=== PATIENT | male | born 1965 | race Caucasian/White ===

== ENCOUNTER 2025-09-14 00:58 | Day surgery (SDC) | payer BC, SELFPAY ==
[2025-09-07 09:31] VITALS: BMI 26.4
--- OUTSIDE RECORDS SUMMARY | 2025-09-14 01:01 | XMS_ITS | Clinical Summary ---
Author Organization [facility] Address [address] [place] [address] Care Team Providers Care Bed Manager Name Role Phone Jose Antonio Pope MD Primary Care Provider Source Comments [facility],non-owned Affiliates and Associated Physician Practices is amultiple site organization consisting of ambulatory clinics and hospital sitesin [place], [place], [place] and [place]. This disclosure is being madepursuant to the Care Everywhere program and may not contain all information available regarding this patient. Last updated 18.[facility] Allergies Active Allergy Reactions Criticality Noted Date Comments Hydrochlorothiazide Dizziness 03/31/2024 Medications * Be aware that medications may not be up to date on this document. Alwaysverify current medications with the patient. 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 Gender Identity Not on file Sexual Orientation Not on file Last Filed Vital Signs Vital Sign Reading Time Taken Comments Blood Pressure 132/77 04/17/2024 3:16 PM CDT Pulse 61 04/17/2024 3:16 PM CDT Temperature 35.8 C (96.5 F) 04/17/2024 11:46 AM CDT Respiratory Rate 18 04/17/2024 3:16 PM CDT Oxygen Saturation 94% 04/17/2024 3:16 PM CDT Inhaled Oxygen Concentration - - Weight 88.1 kg (194 lb 3.2 oz) 04/17/2024 11:46 AM CDT Height 182.9 cm (6') 04/17/2024 11:46 AM CDT Body Mass Index 26.34 04/17/2024 11:46 AM CDT Plan of Treatment Health Maintenance Due Date Last Done Comments COLOGUARD (AGES 45-75) - COLON CA SCREENING 1967 CT COLONOGRAPHY - COLON CA SCREENING 1965 FIT - COLON CA SCREENING 1965 FLEX SIG - COLON CA SCREENING 1967 LIPID TESTING 1967 HIV SCREENING 1982 HEPATITIS C SCREENING 12/16/1985 DTAP/TDAP/TD VACCINES (1 - Tdap) 1986 HEPATITIS B VACCINE (1 of 3 - 19+ 3-dose series) 1986 PNEUMOCOCCAL VACCINE 50+ (1 of 1 - PCV) 2017 ZOSTER VACCINE (1 of 2) 2017 SCREENING FOR DIABETES 05/01/2024 DEPRESSION SCREENING 11/19/2024 COLON MONITORING 05/01/2025 05/01/2024, , 05/01/2024, Additional history exists Colorectal Cancer Screening 05/01/2025 COVID-19 VACCINE ( - season) 2025 INFLUENZA VACCINE (#1) 2025 COLONOSCOPY - COLON CA SCREENING 05/01/2034 05/01/2024, 05/01/2024, 05/01/2024, Additional history exists HIB VACCINE Aged Out No longer eligi ble based on patient's age to complete this topic HPV VACCINE Aged Out No longer eligi ble based on patient's age to complete this topic MENINGOCOCCAL (Group B) VACCINE SHARED DECISION-MAKING Aged Out No longer eligible based on patient's age to complete this topic MENINGOCOCCAL GROUPS A/C/Y/W VACCINE Aged Out No longer eligible based on patient's age to complete this topic Procedures Procedure Name Priority Date/Time Associated Diagnosis Comments ENDOSCOPY, COLON, SCREENING Routine 04/17/2024 10:47 AM CDT Special screening for malignant neoplasms, colon Personal history of colonic polyps from Last 3 Months or Most Recently Relevant to Health Maintenance Results * ENDOSCOPY, COLON, SCREENING (04/17/2024 10:47 AM CDT) Report Endoscopy POC _ Patient Name: Doug Chavez Procedure Date: 04/17/2024 10:47 AM Date of : 1965 Admit Type: Outpatient Age: 58 Gender: Male Attending MD: Art Huerta MD, [id number] _ Procedure: Colonoscopy Indications: Therapeutic procedure for colon polyps, Therapeutic procedure for known colon adenoma Providers: Art Huerta MD (Doctor) Referring MD: Jose Antonio Pope MD (Referring MD) Medicines: Monitored Anesthesia Care Complications: No immediate complications. _ Estimated Blood Loss: Estimated blood loss: none. Procedure: Pre-Anesthesia Assessment: - Prior to the procedure, a History and Physical was performed, and patient medications and allergies were reviewed. The patient's tolerance of previous anesthesia was also reviewed. The risks and benefits of the procedure and the sedation options and risks were discussed with the patient. All questions were answered, and informed consent was obtained. Prior Anticoagulants: The patient has taken no anticoagulant or antiplatelet agents. ASA Grade Assessment: II - A patient with mild systemic disease. After reviewing the risks and benefits, the patient was deemed in satisfactory condition to undergo the procedure. After I obtained informed consent, the scope was passed under direct vision. Throughout the procedure, the patient's blood pressure, pulse, and oxygen saturations were monitored continuously. The Colonoscope was introduced through the anus and advanced to the cecum, identified by appendiceal orifice and ileocecal valve. The colonoscopy was performed without difficulty. The patient tolerated the procedure well. The quality of the bowel preparation was adequate. The ileocecal valve, appendiceal orifice, and rectum were photographed. Findings: The perianal and digital rectal examinations were normal. A 12 mm polyp was found in the cecum. The polyp was sessile. The polyp was removed with a hot snare. Resection and retrieval were complete. Verification of patient identification for the specimen was done. Estimated blood loss: none. To prevent bleeding after the polypectomy, two hemostatic clips were successfully placed. A 4 mm polyp was found in the cecum. The polyp was sessile. The polyp was removed with a cold snare. Resection and retrieval were complete. Verification of patient identification for the specimen was done. Estimated blood loss: none. A 25 mm polyp was found in the ascending colon. The polyp was flat. Preparations were made for mucosal resection. Chromoscopy with methylene blue was done to kumar the borders of the lesion. Demarcation of the lesion was performed to clearly identify boundaries of the lesion. A 0.4 mg/mL solution of epinephrine with methylene blue was injected to raise the lesion. Snare mucosal resection was performed. Resection and retrieval were complete. Resected tissue margins were examined and clear of polyp tissue. To prevent bleeding after mucosal resection, three hemostatic clips were successfully placed. Clip skin piler: [employer]. A 15 mm polyp was found in the ascending colon. The polyp was sessile. Preparations were made for mucosal resection. Chromoscopy with methylene blue was done to kumar the borders of the lesion. Demarcation of the lesion was performed to clearly identify boundaries of the lesion. A 0.4 mg/mL solution of epinephrine with methylene blue was injected to raise the lesion. Snare mucosal resection was performed. Resection and retrieval were complete. Resected tissue margins were examined and clear of polyp tissue. To prevent bleeding after the polypectomy, two hemostatic clips were successfully placed. A 22 mm polyp was found in the descending colon. The polyp was flat. Preparations were made for mucosal resection. Chromoscopy with methylene blue was done to kumar the borders of the lesion. Demarcation of the lesion was performed to clearly identify boundaries of the lesion. A 0.4 mg/mL solution of epinephrine with methylene blue was injected to raise the lesion. Snare mucosal resection was performed. Resection and retrieval were complete. Resected tissue margins were examined and clear of polyp tissue. To prevent bleeding after mucosal resection, two hemostatic clips were successfully placed. An 8 mm polyp was found in the descending colon. The polyp was sessile. The polyp was removed with a hot snare. Resection and retrieval were complete. Verification of patient identification for the specimen was done. Estimated blood loss: none. To prevent bleeding after the polypectomy, one hemostatic clip was successfully placed. A diminutive polyp was found in the sigmoid colon. The polyp was sessile. The polyp was removed with a jumbo cold forceps. Resection and retrieval were complete. Verification of patient identification for the specimen was done. Estimated blood loss was minimal. An 18 mm polyp was found in the proximal rectum. The polyp was semi-pedunculated . The polyp was removed with a hot snare. Resection and retrieval were complete. Verification of patient identification for the specimen was done. Estimated blood loss: none. Non-bleeding external hemorrhoids were found during retroflexion. The hemorrhoids were medium-sized. The exam was otherwise without abnormality. Small polyps could have been missed due to the quality of the prep. _ Impression: - One 12 mm polyp in the cecum, removed with a hot snare. Resected and retrieved. Clips were placed. - One 4 mm polyp in the cecum, removed with a cold snare. Resected and retrieved. - One 25 mm polyp in the ascending colon adjacent to the tattoo, removed en bloc with mucosal resection. Resected and retrieved. Clips were placed. - One 15 mm polyp in the ascending colon, removed en bloc with mucosal resection. Resected and retrieved. Clips were placed. - One 22 mm polyp in the descending colon, removed en bloc with mucosal resection. Resected and retrieved. Clips were placed. - One 8 mm polyp in the descending colon, removed with a hot snare. Resected and retrieved. Clip was placed. - One diminutive polyp in the sigmoid colon, removed with a jumbo cold forceps. Resected and retrieved. - One 18 mm polyp in the proximal rectum, removed with a hot snare. Resected and retrieved. - Non-bleeding external hemorrhoids. - The examination was otherwise normal. Small polyps could have been missed due to quality of the prep. Recommendation: - Discharge patient to home (with spouse). - Patient has a contact number available for emergencies. The signs and symptoms of potential delayed complications were discussed with the patient. Return to normal activities tomorrow. Written discharge instructions were provided to the patient. - Resume previous diet today. - Continue present medications. - Await pathology results. - Repeat colonoscopy in 1 year for surveillance. Procedure Code(s): --- Professional --- 15545, Colonoscopy, flexible; with endoscopic mucosal resection 46371, 59, Colonoscopy, flexible; with removal of tumor(s), polyp(s), or other lesion(s) by snare technique 92332, 59, Colonoscopy, flexible; with biopsy, single or multiple --- Technical --- 74962, Colonoscopy, flexible; with endoscopic mucosal resection 92817, 59, Colonoscopy, flexible; with removal of tumor(s), polyp(s), or other lesion(s) by snare technique [id number], 59, Colonoscopy, flexible; with biopsy, single or multiple Diagnosis Code(s): --- Professional --- D12.0, Benign neoplasm of cecum D12.2, Benign neoplasm of ascending colon D12.4, Benign neoplasm of descending colon D12.5, Benign neoplasm of sigmoid colon D12.8, Benign neoplasm of rectum K64.4, Residual hemorrhoidal skin tags K63.5, Polyp of colon D12.6, Benign neoplasm of colon, unspecified --- Technical --- D12.0, Benign neoplasm of cecum D12.2, Benign neoplasm of ascending colon D12.4, Benign neoplasm of descending colon D12.5, Benign neoplasm of sigmoid colon D12.8, Benign neoplasm of rectum K64.4, Residual hemorrhoidal skin tags K63.5, Polyp of colon D12.6, Benign neoplasm of colon, unspecified CPT copyright 2020 [employer]. All rights reserved. The codes documented in this report are preliminary and upon gravity prospecting observer helper review may be revised to meet current compliance requirements. Dr. Kasey Huerta MD M Zonia Huerta MD 04/17/2024 3:07:14 PM This report has been signed electronically. Number of Addenda: 0 Note Initiated On: 04/17/2024 10:47 AM Procedure Date: 04/17/2024 10:47:05 AM Scope Withdrawal Time: 0 hours 56 minutes 1 second [facility] 04/17/2024 10:4 7 AM CDT Art Huerta MD GI PROCEDURE ORDERABLES Edited Result - Final [facility] from Last 3 Months or Most Recently Relevant to Health Maintenance Insurance [employer] Care Teams Bed Manager Relationship Specialty [place] [address] [place] [id number] PCP - General Internal Medicine 10/24/23
--- OUTSIDE RECORDS SUMMARY | 2025-09-14 01:01 | XMS_ITS | Data Portability ---
Author Organization [place] - [facility], Main Office Address [address] [place] [address] Assessment Encounter Date Assessment Date Assessment LastModified by Organization Details LastModified Time 07/26/2023 07/26/2023 right colon polyp. Benign serrated adenoma for pathologic report. No dysplasia. Incompletely excised however. I had conversation with GI doctor knee as he performed a colonoscopy and we will repeat colonoscopy in 5 4 months or so to revisit. If unable to completely excise then he may at that point required right colectomy. I discussed these findings with the patient. He is agreeable. [email or web address] Not available 07/26/2023 13:23:01 Plan of Treatment Reminders Order Date Submit Date Provider Last Modified By Organization Details Last Modified Time Details Appointments Follow Up 15 2024 02:15P Art ayala MD Not available Not available Not available Lab PSA, total, serum or plasma 2023 024 BLANE [facility] (Lab), [address] [place], [address], 05/06/2024 16:42:00 lipid panel, serum 2023 024 [email or web address] [facility] (Lab), [address] [place], [address], 08/25/2024 10:21:37 CBC w/ auto diff 2023 024 [email or web address] [facility] (Lab), [address] [place], [address], 08/25/2024 10:21:38 TSH, serum or plasma 2023 024 [email or web address] [facility] (Lab), [address] [place], [address], 08/25/2024 10:21:38 CMP, serum or plasma 2023 024 [email or web address] [facility] (Lab), [address] [place], [address], 08/25/2024 10:21:38 Referral None recorded . Procedures None recorded . Surgeries None recorded . Imaging None recorded . Medication Orders None recorded . Patient TargetsNo targets recorded. Patient Instructions Encounter Date Encounter Id Patient Instructions Last Modified By Organization Details Last Modified Time 02/20/2024 [id number] risk assessment* [email or web address] Not avai lable 02/20/2024 10:40:32 INFLUENZA VACCIN E Recommended today, but patient declined TD/TDAP Patient will get at local pharmacy/health department PNEUMONIA VACCINE Recommended at age 67 SHINGLES Patient will get at local pharmacy/health department PSA recommended COLORECTAL SCREENING has appt for 2nd opinion 03/2024 DEPRESSION SCREENING Negative BMI Overweight try to lose 10% of your body weight NUTRITION Eat Heart Healthy Diet PHYSICAL ACTIVITY Need more exercise/physical activity ALCOHOL USE Occasional/Social Use TOBACCO USE non smoker LUNG CANCER SCREENING Non Smoker-not indicated SEXUALLY ACTIVE HEPATITIS C SCREENING Not indicated GLUCOSE SCREENING recommended LIPID SCREENING recommended [email or web address] Not available 02/20/2024 10:25:35 Reason for Referral None Reported. Results Created Date Observation Date Name Description Value Unit Range Abnormal Flag Note LastModifiedBy Organization Detail LastModifiedTime 06/07/2006/07/2021 PSA SCREE N PSA medicare screen 1.47 NG/mL 0.00-4 .00 Not Available [facility] (Lab) [address] [place], [address], 06/07/2021 17:34:25 06/07/20 21 06/07/2021 TSH thyroid-stim ulating hormone 2.540 uIU/m L 0.465- 4.680 Not Available [facility] (Lab) [address] [place], [address], 06/07/2021 17:34:23 06/07/20 21 06/07/2021 T4 FREE free T4 1.16 NG/dL 0.78-2 .19 Not Available [facility] (Lab) [address] [place], [address], 06/07/2021 17:06:58 06/07/20 21 06/07/2021 COMPR EHENS JOSÉ METAB OLIC PANEL sodium 137 mmol/ L 137-14 5 Not Available [facility] (Lab) [address] [place], [address], 06/07/2021 17:00:24 06/07/20 21 06/07/2021 COMPR EHENS JOSÉ METAB OLIC PANEL potassium 4.9 mmol/ L 3.5-5. 1 Not Available [facility] (Lab) [address] [place], [address], 06/07/2021 17:00:24 06/07/20 21 06/07/2021 COMPR EHENS JOSÉ METAB OLIC PANEL chloride 103 mmol/ L 98-107 Not Available [facility] (Lab) [address] [place], [address], 06/07/2021 17:00:24 06/07/20 21 06/07/2021 COMPR EHENS JOSÉ METAB OLIC PANEL carbon dioxide 28 mmol/ L 22-30 Not Available [facility] (Lab) [address] [place], [address], 06/07/2021 17:00:24 06/07/20 21 06/07/2021 COMPR EHENS JOSÉ METAB OLIC PANEL agap 10.9 mmol/ L 14-22 low Not Available [facility] (Lab) [address] [place], [address], 06/07/2021 17:00:24 06/07/20 06/07/2021 COMPR EHENS JOSÉ METAB OLIC PANEL glucose 88 mg/dL 70-99 Not Available [facility] (Lab) [address] [place], [address], 06/07/2021 17:00:24 06/07/20 21 06/07/2021 COMPR EHENS JOSÉ METAB OLIC PANEL BUN 16 mg/dL 8-19 Not Available [facility] (Lab) [address] [place], [address], 06/07/2021 17:00:24 06/07/20 21 06/07/2021 COMPR EHENS JOSÉ METAB OLIC PANEL creatinine 1.17 mg/dL 0.66-1 .25 Not Available [facility] (Lab) [address] [place], [address], 06/07/2021 17:00:24 06/07/20 21 06/07/2021 COMPR EHENS JOSÉ METAB OLIC PANEL GFR >60 Refer ence Range : [place] ge GFR Healt hy Adult : >60 mL/mi n/1.7 3 m2 Chron ic Kidne y Disea se: 15-60 mL/mi n/1.7 3 m2 Kidne y Failu re: <15/m L/min /1.73 m2 www.n iddk. nih.g ov MDRD study equat ion hasn' t been valid ated in child edwar <18 yrs of age, pregn ant women , the elder ly >85 yrs of age, or in some racia l or ethni c subgr oups, suc as Hispa nics. Outsi de the valid ated vinnie eters , estim ated GFR is less accur ate requi ring clini cristina judgm ent on a case by case basis . Clini cristina inter preta tion for other races and ages must be made by the clini mo . Futhe rmore , any of th e limit ation s with the use of serum creat inine relat ed to nutri татьяна l statu s o r medic ation usage hasn' t accou nted for the MDRD Study equat ion. For perso ns < 18 yrs of age, a pedia tric GFR calcu lator can be locat ed on the [facility] websi te: https ://kristin costello.o juma/marshal sigala s/kdo qi/gf r_cal culat or Not Available [facility] (Lab) [address] [place], [address], 06/07/2021 17:00:24 06/07/20 21 06/07/2021 COMPR EHENS JOSÉ METAB OLIC PANEL alkaline phosphatase 63 U/L 38-126 Not Available [facility] (Lab) [address] [place], [address], 06/07/2021 17:00:24 06/07/20 21 06/07/2021 COMPR EHENS JOSÉ METAB OLIC PANEL alanine aminotransfe rase 17 U/L 0-50 Not Available [facility] (Lab) [address] [place], [address], 06/07/2021 17:00:24 06/07/20 21 06/07/2021 COMPR EHENS JOSÉ METAB OLIC PANEL aspartate aminotransfe rase 30 U/L 15-46 Not Available [facility] (Lab) [address] [place], [address], 06/07/2021 17:00:24 06/07/20 21 06/07/2021 COMPR EHENS JOSÉ METAB OLIC PANEL bilirubin, total 0.90 mg/dL 0.20-1 .30 Not Available [facility] (Lab) [address] [place], [address], 06/07/2021 17:00:24 06/07/20 21 06/07/2021 COMPR EHENS JOSÉ METAB OLIC PANEL calcium 9.1 mg/dL 8.4-10 .2 Not Available [facility] (Lab) [address] [place], [address], 06/07/2021 17:00:24 06/07/20 21 06/07/2021 COMPR EHENS JOSÉ METAB OLIC PANEL total protein 6.9 g/dL 6.3-8. 2 Not Available [facility] (Lab) [address] [place], [address], 06/07/2021 17:00:24 06/07/20 21 06/07/2021 COMPR EHENS JOSÉ METAB OLIC PANEL albumin 4.5 g/dL 3.4-5. 0 Not Available [facility] (Lab) [address] [place], [address], 06/07/2021 17:00:24 06/07/20 21 06/07/2021 COMPR EHENS JOSÉ METAB OLIC PANEL globulin 2.4 g/dL 2.6-4. 2 low Not Available [facility] (Lab) [address] [place], [address], 06/07/2021 17:00:24 06/07/20 21 06/07/2021 COMPR EHENS JOSÉ METAB OLIC PANEL A/G ratio 1.9 ratio 1.0-2. 0 Not Available [facility] (Lab) [address] [place], [address], 06/07/2021 17:00:24 06/07/20 21 06/07/2021 LIPID PANEL cholesterol 181 mg/dL 140-19 9 NIH ROLANDO NSUS RECOM MENDA TION FOR PATI STERO L: ADULT CHILD LOW RISK: <200 <170 BORDE RLINE : <200- 239 ----- HIGH RISK: >240 >200 Not Available [facility] (Lab) [address] [place], [address], 06/07/2021 17:00:21 06/07/20 21 06/07/2021 LIPID PANEL triglyceride s 128 mg/dL 0-150 NIH ROLANDO NSUS REPOR T RECOM MENDA TION FOR TRIGL YCERI ABEL: ADULT CHILD LOW RISK: <150 ----- BODER LINE: 150-1 99 ----- HIGH RISK: >200 ----- Not Available [facility] (Lab) [address] [place], [address], 06/07/2021 17:00:21 06/07/20 21 06/07/2021 LIPID PANEL HDL cholesterol 47 mg/dL 40- Not Available [facility] (Lab) [address] [facility] [place], [address], 06/07/2021 17:00:21 06/07/20 21 06/07/2021 LIPID PANEL LDL cholesterol, calculated 108 mg/dL 0-130 NIH ROLANDO NSUS REPOR T RECOM MENDA TIONS FOR LDL: ADULT CHILD LOW RISK <130 <110 (OPTI MAL LDL) <100 ----- PARTH RLINE : 130-1 59 ----- HIGH RISK: >160 >130 A TRIGL YCERI DE RESUL T >400 INVAL IDATE S THE CALCU LATIO N FOR LDL FRACT IONAT ION - THE LDL RESUL T WILL NOT BE REPOR FERCHO. Not Available [facility] (Lab) [address] [place], [address], 06/07/2021 17:00:21 06/07/20 21 06/07/2021 CBC/C OMPLE TE BLD COUNT W/DIF F white blood cells 5.8 x10'3 /uL 4.2-10 .8 Not Available [facility] (Lab) [address] [place], [address], 06/07/2021 16:46:32 06/07/20 21 06/07/2021 CBC/C OMPLE TE BLD COUNT W/DIF F red blood cells 4.70 x10'6 /uL 4.10-5 .80 Not Available [facility] (Lab) [address] [place], [address], 06/07/2021 16:46:32 06/07/20 21 06/07/2021 CBC/C OMPLE TE BLD COUNT W/DIF F hemoglobin 13.9 g/dL 13.2-1 7.0 Not Available [facility] (Lab) [address] [place], [address], 06/07/2021 16:46:32 06/07/20 21 06/07/2021 CBC/C OMPLE TE BLD COUNT W/DIF F hematocrit 41.2 % 39.3-5 0.0 Not Available [facility] (Lab) [address] [facility] [place], [address], 06/07/2021 16:46:32 06/07/20 21 06/07/2021 CBC/C OMPLE TE BLD COUNT W/DIF F mean red cell volume 87.7 fL 80.0-9 7.0 Not Available [facility] (Lab) [address] [place], [address], 06/07/2021 16:46:32 06/07/20 21 06/07/2021 CBC/C OMPLE TE BLD COUNT W/DIF F mean red cell hemoglobin 29.6 pg 27.0-3 3.0 Not Available [facility] (Lab) [address] [place], [address], 06/07/2021 16:46:32 06/07/20 21 06/07/2021 CBC/C OMPLE TE BLD COUNT W/DIF F mean RBC HGB concentratio n 33.7 g/dL 31.0-3 6.0 Not Available [facility] (Lab) [address] [place], [address], 06/07/2021 16:46:32 06/07/20 21 06/07/2021 CBC/C OMPLE TE BLD COUNT W/DIF F red cell distribution width 12.8 % 11.8-1 5.5 Not Available [facility] (Lab) [address] [place], [address], 06/07/2021 16:46:32 06/07/20 21 06/07/2021 CBC/C OMPLE TE BLD COUNT W/DIF F platelets 214 x10'3 /uL 150-40 0 Not Available [facility] (Lab) [address] [place], [address], 06/07/2021 16:46:32 06/07/20 21 06/07/2021 CBC/C OMPLE TE BLD COUNT W/DIF F mean platelet volume 10.1 fL 9.0-12 .4 Not Available [facility] (Lab) [address] [place], [address], 06/07/2021 16:46:32 06/07/20 21 06/07/2021 CBC/C OMPLE TE BLD COUNT W/DIF F neutrophils 62.9 % 39.0-7 2.0 Not Available [facility] (Lab) [address] [place], [address], 06/07/2021 16:46:32 06/07/20 21 06/07/2021 CBC/C OMPLE TE BLD COUNT W/DIF F lymphocytes 23.8 % 16.0-4 7.0 Not Available [facility] (Lab) [address] [place], [address], 06/07/2021 16:46:32 06/07/20 21 06/07/2021 CBC/C OMPLE TE BLD COUNT W/DIF F monocytes 7.4 % 5.0-12 .0 Not Available [facility] (Lab) [address] [place], [address], 06/07/2021 16:46:32 06/07/20 21 06/07/2021 CBC/C OMPLE TE BLD COUNT W/DIF F eosinophils 4.5 % 1.0-7. 0 Not Available [facility] (Lab) [address] [place], [address], 06/07/2021 16:46:32 06/07/20 21 06/07/2021 CBC/C OMPLE TE BLD COUNT W/DIF F basophils 1.2 % 0.0-2. 0 Not Available [facility] (Lab) [address] [place], [address], 06/07/2021 16:46:32 06/07/20 21 06/07/2021 CBC/C OMPLE TE BLD COUNT W/DIF F immature granulocytes 0.2 % 0.00-0 .50 Not Available [facility] (Lab) [address] [place], [address], 06/07/2021 16:46:32 06/07/20 21 06/07/2021 CBC/C OMPLE TE BLD COUNT W/DIF F neutrophils, absolute count 3.68 x10'3 /uL 1.5-8. 0 Not Available [facility] (Lab) [address] [place], [address], 06/07/2021 16:46:32 06/07/20 21 06/07/2021 CBC/C OMPLE TE BLD COUNT W/DIF F lymphocytes, absolute count 1.39 x10'3 /uL 1.07-3 .43 Not Available [facility] (Lab) [address] [place], [address], 06/07/2021 16:46:32 06/07/20 21 06/07/2021 CBC/C OMPLE TE BLD COUNT W/DIF F monocytes, absolute count 0.43 x10'3 /uL 0.29-0 .99 Not Available [facility] (Lab) [address] [place], [address], 06/07/2021 16:46:32 06/07/20 21 06/07/2021 CBC/C OMPLE TE BLD COUNT W/DIF F eosinophils, absolute count 0.26 x10'3 /uL 0.02-0 .53 Not Available [facility] (Lab) [address] [place], [address], 06/07/2021 16:46:32 06/07/20 21 06/07/2021 CBC/C OMPLE TE BLD COUNT W/DIF F basophils, absolute count 0.07 x10'3 /uL 0.01-0 .08 Not Available [facility] (Lab) [address] [place], [address], 06/07/2021 16:46:32 06/07/20 21 06/07/2021 CBC/C OMPLE TE BLD COUNT W/DIF F immature granulocytes ,absolute 0.01 x10'3 /uL 0.00-0 .05 Not Available [facility] (Lab) [address] [place], [address], 06/07/2021 16:46:32 06/07/20 21 06/07/2021 CBC/C OMPLE TE BLD COUNT W/DIF F nucleated red blood cells 0.0 % -0 Not Available [facility] (Lab) [address] [place], [address], 06/07/2021 16:46:32 06/07/20 21 06/07/2021 CBC/C OMPLE TE BLD COUNT W/DIF F NRBC# 0.00 x10'3 /uL Not Available [facility] (Lab) [address] [place], [address], 06/07/2021 16:46:32 09/07/20 22 09/07/2022 TSH W/REF KEVON FT4 TSH with reflex free T4 2.570 uIU/m L 0.465- 4.680 Not Available [facility] (Lab) [address] [place], [address], 09/07/2022 14:53:17 09/07/20 22 09/07/2022 PSA SCREE N PSA medicare screen 1.94 NG/mL 0.00-4 .00 Not Available [facility] (Lab) [address] [place], [address], 09/07/2022 14:53:15 09/07/20 22 09/07/2022 LIPID PANEL cholesterol 244 mg/dL 140-19 9 high NIH ROLANDO NSUS RECOM MENDA TION FOR PATI STERO L: ADULT CHILD LOW RISK: <200 <170 BORDE RLINE : <200- 239 ----- HIGH RISK: >240 >200 Not Available [facility] (Lab) [address] [place], [address], 09/07/2022 14:39:02 09/07/20 22 09/07/2022 LIPID PANEL triglyceride s 172 mg/dL 0-150 high NIH ROLANDO NSUS REPOR T RECOM MENDA TION FOR TRIGL YCERI ABEL: ADULT CHILD LOW RISK: <150 ----- BODER LINE: 150-1 99 ----- HIGH RISK: >200 ----- Not Available [facility] (Lab) [address] [place], [address], 09/07/2022 14:39:02 09/07/20 22 09/07/2022 LIPID PANEL HDL cholesterol 62 mg/dL 40- Not Available [facility] (Lab) [address] [place], [address], 09/07/2022 14:39:02 09/07/20 22 09/07/2022 LIPID PANEL LDL cholesterol, calculated 148 mg/dL 0-130 high NIH ROLANDO NSUS REPOR T RECOM MENDA TIONS FOR LDL: ADULT CHILD LOW RISK <130 <110 (OPTI MAL LDL) <100 ----- BORDE RLINE : 130-1 59 ----- HIGH RISK: >160 >130 A TRIGL YCERI DE RESUL T >400 INVAL IDATE S THE CALCU LATIO N FOR LDL FRACT IONAT ION - THE LDL RESUL T WILL NOT BE REPOR FERCHO. Not Available [facility] (Lab) [address] [place], [address], 09/07/2022 14:39:02 09/07/20 22 09/07/2022 COMPR EHENS JOSÉ METAB OLIC PANEL sodium 138 mmol/ L 137-14 5 Not Available [facility] (Lab) [address] [place], [address], 09/07/2022 14:37:21 09/07/20 22 09/07/2022 COMPR EHENS JOSÉ METAB OLIC PANEL potassium 4.6 mmol/ L 3.5-5. 1 Not Available [facility] (Lab) [address] [place], [address], 09/07/2022 14:37:21 09/07/20 22 09/07/2022 COMPR EHENS JOSÉ METAB OLIC PANEL chloride 103 mmol/ L 98-107 Not Available [facility] (Lab) [address] [place], [address], 09/07/2022 14:37:21 09/07/20 22 09/07/2022 COMPR EHENS JOSÉ METAB OLIC PANEL carbon dioxide 27 mmol/ L 22-30 Not Available [facility] (Lab) [address] [place], [address], 09/07/2022 14:37:21 09/07/20 22 09/07/2022 COMPR EHENS JOSÉ METAB OLIC PANEL anion gap 12.6 mmol/ L 14-22 low Not Available [facility] (Lab) [address] [place], [address], 09/07/2022 14:37:21 09/07/20 22 09/07/2022 COMPR EHENS JOSÉ METAB OLIC PANEL glucose 95 mg/dL 70-99 Not Available [facility] (Lab) [address] [place], [address], 09/07/2022 14:37:21 09/07/20 22 09/07/2022 COMPR EHENS JOSÉ METAB OLIC PANEL BUN 20 mg/dL 8-19 high Not Available [facility] (Lab) [address] [place], [address], 09/07/2022 14:37:21 09/07/20 22 09/07/2022 COMPR EHENS JOSÉ METAB OLIC PANEL creatinine 1.13 mg/dL 0.66-1 .25 Not Available [facility] (Lab) [address] [place], [address], 09/07/2022 14:37:21 09/07/20 22 09/07/2022 COMPR EHENS JOSÉ METAB OLIC PANEL GFR >60 Refer ence Range : [place] ge GFR Healt hy Adult : >60 mL/mi n/1.7 3 m2 Chron ic Kidne y Disea se: 15-60 mL/mi n/1.7 3 m2 Kidne y Failu re: <15/m L/min /1.73 m2 www.n iddk. nih.g ov The MDRD study equat ion has not been valid ated in child edwar <18 years of age; pregn ant women ; the elder ly >85 years of age; or in some racia l or ethni c subgr oups, such as Hispa nics. Outsi de the valid ated vinnie eters , estim ated GFR is less accur ate, requi ring clini cristina judgm ent on a case- by-ca se basis . Clini cristina inter preta tion for other races and ages must be made by the clini mo. The MDRD study equat ion has not been valid ated for the evalu ation of serum creat inine relat ed to nutri татьяна l statu s or medic ation usage . For perso ns <18 years of age, a pedia tric GFR calcu lator is avail able on the [facility] websi te: https ://kristin w.kid pravin.o rg/pr ofess ional s/kdo qi/gf r_cal culat or Not Available [facility] (Lab) [address] [place], [address], 09/07/2022 14:37:21 09/07/20 22 09/07/2022 COMPR EHENS JOSÉ METAB OLIC PANEL alkaline phosphatase 70 U/L 38-126 Not Available [facility] (Lab) [address] [place], [address], 09/07/2022 14:37:21 09/07/20 22 09/07/2022 COMPR EHENS JOSÉ METAB OLIC PANEL alanine aminotransfe rase 21 U/L 0-50 Not Available [facility] (Lab) [address] [place], [address], 09/07/2022 14:37:21 09/07/20 22 09/07/2022 COMPR EHENS JOSÉ METAB OLIC PANEL aspartate aminotransfe rase 29 U/L 15-46 Not Available [facility] (Lab) [address] [place], [address], 09/07/2022 14:37:21 09/07/20 22 09/07/2022 COMPR EHENS JOSÉ METAB OLIC PANEL bilirubin, total 0.80 mg/dL 0.20-1 .30 Not Available [facility] (Lab) [address] [place], [address], 09/07/2022 14:37:21 09/07/20 22 09/07/2022 COMPR EHENS JOSÉ METAB OLIC PANEL calcium 9.5 mg/dL 8.4-10 .2 Not Available [facility] (Lab) [address] [place], [address], 09/07/2022 14:37:21 09/07/20 22 09/07/2022 COMPR EHENS JOSÉ METAB OLIC PANEL total protein 7.7 g/dL 6.3-8. 2 Not Available [facility] (Lab) [address] [place], [address], 09/07/2022 14:37:21 09/07/20 22 09/07/2022 COMPR EHENS JOSÉ METAB OLIC PANEL albumin 4.9 g/dL 3.4-5. 0 Not Available [facility] (Lab) [address] [place], [address], 09/07/2022 14:37:21 09/07/20 22 09/07/2022 COMPR EHENS JOSÉ METAB OLIC PANEL globulin 2.8 g/dL 2.6-4. 2 Not Available [facility] (Lab) [address] [place], [address], 09/07/2022 14:37:21 09/07/20 22 09/07/2022 COMPR EHENS JOSÉ METAB OLIC PANEL A/G ratio 1.8 ratio 1.0-2. 0 Not Available [facility] (Lab) [address] [place], [address], 09/07/2022 14:37:21 09/07/20 22 09/07/2022 CBC/C OMPLE TE BLD COUNT W/DIF F mean platelet volume 9.9 fL 9.0-12 .4 Not Available [facility] (Lab) [address] [place], [address], 09/07/2022 14:01:52 09/07/20 22 09/07/2022 CBC/C OMPLE TE BLD COUNT W/DIF F neutrophils 62.3 % 39.0-7 2.0 Not Available [facility] (Lab) [address] [place], [address], 09/07/2022 14:01:52 09/07/2009/07/2022 CBC/C OMPLE TE BLD COUNT W/DIF F lymphocytes 25.0 % 16.0-4 7.0 Not Available [facility] (Lab) [address] [place], [address], 09/07/2022 14:01:52 09/07/20 22 09/07/2022 CBC/C OMPLE TE BLD COUNT W/DIF F monocytes 6.8 % 5.0-12 .0 Not Available [facility] (Lab) [address] [place], [address], 09/07/2022 14:01:52 09/07/20 22 09/07/2022 CBC/C OMPLE TE BLD COUNT W/DIF F eosinophils 4.5 % 1.0-7. 0 Not Available [facility] (Lab) [address] [place], [address], 09/07/2022 14:01:52 09/07/20 22 09/07/2022 CBC/C OMPLE TE BLD COUNT W/DIF F basophils 1.1 % 0.0-2. 0 Not Available [facility] (Lab) [address] [place], [address], 09/07/2022 14:01:52 09/07/20 22 09/07/2022 CBC/C OMPLE TE BLD COUNT W/DIF F immature granulocytes 0.3 % 0.00-0 .50 Not Available [facility] (Lab) [address] [place], [address], 09/07/2022 14:01:52 09/07/20 22 09/07/2022 CBC/C OMPLE TE BLD COUNT W/DIF F neutrophils, absolute count 4.05 x10'3 /uL 1.5-8. 0 Not Available [facility] (Lab) [address] [place], [address], 09/07/2022 14:01:52 09/07/20 22 09/07/2022 CBC/C OMPLE TE BLD COUNT W/DIF F lymphocytes, absolute count 1.62 x10'3 /uL 1.07-3 .43 Not Available [facility] (Lab) [address] [place], [address], 09/07/2022 14:01:52 09/07/20 22 09/07/2022 CBC/C OMPLE TE BLD COUNT W/DIF F monocytes, absolute count 0.44 x10'3 /uL 0.29-0 .99 Not Available [facility] (Lab) [address] [place], [address], 09/07/2022 14:01:52 09/07/20 22 09/07/2022 CBC/C OMPLE TE BLD COUNT W/DIF F eosinophils, absolute count 0.29 x10'3 /uL 0.02-0 .53 Not Available [facility] (Lab) [address] [place], [address], 09/07/2022 14:01:52 09/07/20 22 09/07/2022 CBC/C OMPLE TE BLD COUNT W/DIF F basophils, absolute count 0.07 x10'3 /uL 0.01-0 .08 Not Available [facility] (Lab) [address] [place], [address], 09/07/2022 14:01:52 09/07/20 22 09/07/2022 CBC/C OMPLE TE BLD COUNT W/DIF F immature granulocytes ,absolute 0.02 x10'3 /uL 0.00-0 .05 Not Available [facility] (Lab) [address] [place], [address], 09/07/2022 14:01:52 09/07/20 22 09/07/2022 CBC/C OMPLE TE BLD COUNT W/DIF F nucleated red blood cells 0.0 % -0 Not Available [facility] (Lab) [address] [place], [address], 09/07/2022 14:01:52 09/07/20 22 09/07/2022 CBC/C OMPLE TE BLD COUNT W/DIF F NRBC# 0.00 x10'3 /uL Not Available [facility] (Lab) [address] [place], [address], 09/07/2022 14:01:52 09/07/20 22 09/07/2022 CBC/C OMPLE TE BLD COUNT W/DIF F white blood cells 6.5 x10'3 /uL 4.2-10 .8 Not Available [facility] (Lab) [address] [place], [address], 09/07/2022 14:01:52 09/07/20 22 09/07/2022 CBC/C OMPLE TE BLD COUNT W/DIF F red blood cells 5.06 x10'6 /uL 4.10-5 .80 Not Available [facility] (Lab) [address] [place], [address], 09/07/2022 14:01:52 09/07/20 22 09/07/2022 CBC/C OMPLE TE BLD COUNT W/DIF F hemoglobin 15.1 g/dL 13.2-1 7.0 Not Available [facility] (Lab) [address] [facility] [place], [address], 09/07/2022 14:01:52 09/07/2009/07/2022 CBC/C OMPLE TE BLD COUNT W/DIF F hematocrit 45.2 % 39.3-5 0.0 Not Available [facility] (Lab) [address] [facility] [place], [address], 09/07/2022 14:01:52 09/07/20 22 09/07/2022 CBC/C OMPLE TE BLD COUNT W/DIF F mean red cell volume 89.3 fL 80.0-9 7.0 Not Available [facility] (Lab) [address] [place], [address], 09/07/2022 14:01:52 09/07/20 22 09/07/2022 CBC/C OMPLE TE BLD COUNT W/DIF F mean red cell hemoglobin 29.8 pg 27.0-3 3.0 Not Available [facility] (Lab) [address] [place], [address], 09/07/2022 14:01:52 09/07/20 22 09/07/2022 CBC/C OMPLE TE BLD COUNT W/DIF F mean RBC HGB concentratio n 33.4 g/dL 31.0-3 6.0 Not Available [facility] (Lab) [address] [place], [address], 09/07/2022 14:01:52 09/07/20 22 09/07/2022 CBC/C OMPLE TE BLD COUNT W/DIF F red cell distribution width 13.1 % 11.8-1 5.5 Not Available [facility] (Lab) [address] [place], [address], 09/07/2022 14:01:52 09/07/20 22 09/07/2022 CBC/C OMPLE TE BLD COUNT W/DIF F platelets 275 x10'3 /uL 150-40 0 Not Available [facility] (Lab) [address] [place], [address], 09/07/2022 14:01:52 Result Notes None recorded. Problems Name Problem SNOMED Code Status Onset Date Resolution Date Notes Provider Name and Address Organization Details Recorded Time Restless sleep 48212734 Active Not Available [facility] 4 23:37:08 Hyperchol esterolem ia 05377360 Active Not Available [facility] 4 23:37:08 Restless legs syndrome 11180072 Active Not Available [facility] 4 23:37:08 Sinusitis 34969865 Active Not Available [facility] 4 23:37:08 Pain of wrist region 70038328 Completed Not Available [facility] 3 15:18:43 Essential hypertens ion 99136379 Active Not Available [facility] 4 23:37:08 Snoring 19720369 Active Not Available [facility] 4 23:37:08 Hyperlipi demia 39828213 Active 2022 Not Available [facility] 4 23:37:08 Lesion of skin of face 66471728377 6 Active 2022 Not Available [facility] 4 23:37:08 Vitamin D deficienc y 92502497 Active 2022 Not Available Pending sale to [facility] 4 23:37:08 Polyp of colon 90348701 Active 2022 Not Available Pending sale to [facility] 4 23:37:08 Disorder of prostate 30854085 Active 2023 Zoie Miller MA null, [place] [facility] [employer] 4 17:14:41 Problem Notes None recorded. Procedures Surgical History Date Name Laterality Status Provider Name and Address Organization Details Recorded Time Orthopedic Surgery completed Not Available Pending sale to [facility] 01/17/2023 15:15:33 rectal polypectomy completed Not Available Pending sale to [facility] 01/17/2023 15:15:33 Colonoscopy completed Not Available Pending sale to [facility] 01/17/2023 15:15:33 Imaging Results None recorded. Procedure Notes None recorded. Medical Equipment None Reported. Allergies Allergen ID Allergen Name Allergen Category Reaction Reaction Severity Criticality Documentation Date Start Date Code Code System Note Provider Name and Address Organization Details Recorded Time 01288 hydrochlo rothiazid e medicatio n dizziness Not available Not available 01/17/2023 5487 RxNorm Not Available Pending sale to [facility] 3 15:21:20 Medications Name Sig Start Date Stop Date Status Note LastModified by Organization Details LastModified Time losartan 50 mg tablet TAKE ONE TABLET BY MOUTH ONCE DAILY 01/31 completed Not Available Not Available Not Available cyclobenz aprine 10 mg tablet TAKE 1 TABLET BY MOUTH THREE TIMES DAILY NEEDED FOR MUSCLE SPASMS 06/09 completed Not Available Not Available Not Available amoxicill in 500 mg capsule Take 1 capsule every 8 hours by oral route. active Not Available Not Available No t Available atorvasta tin 40 mg tablet Take 1 tablet every day by oral route for 90 days. active Not Available Not Available No t Available prednison e 10 mg tablet Take by oral route. active Not Available Not Available No t Available atorvasta tin 10 mg tablet Take 1 tablet every day by oral route. 06/03 completed Insomnia started after 10-14 days. Not Available Not Available Not Available azithromy luisito 250 mg tablet Take 2 TABLEts the first day then 1/day active Not Available Not Available No t Available lisinopri l 20 mg tablet TAKE 1 TABLET BY MOUTH DAILY active Not Available Not Available No t Available ciproflox acin 500 mg tablet TAKE 1 TABLET BY MOUTH EVERY 12 HOURS FOR 7 DAYS 06/09 completed Not Available Not Available Not Available rosuvasta tin 40 mg tablet TAKE 1 TABLET DAILY (STOP ATORVAST ATIN) 2024 active Not Available Not Available Not Avai lable sodium,po tassium,m ag sulfates 17.5 gram-3.13 gram-1.6 gram oral soln MIX AND DRINK DIRECTED 07/29 completed Not Available Not Available Not Available Sutab 1.479-0.1 88-0.225 gram tablet TAKE DIRECTED 02/19 completed Not Available Not Available Not Available Vitals Date Recorded Body height Body mass index (BMI) Body weight Body temperature Heart rate Systolic And Diastolic Provider Name and Address Organization Details Last Updated DateTime 4 180.34 cm 28.2 kg/m2 09407.6 6 g 97.7 [degF] 78 /min 120/80 mm[Hg] PHILIP Figueroa [employer] 4 10:09:04 Date Recorded Oxygen saturation Oxygen saturation in Arterial blood by Pulse oximetry Heart rate Body temperature Body weight Systolic And Diastolic Provider Name and Address Organization Details Last Updated DateTime 1 99 % 99 % 77 /min 97.7 [degF] 37976.7 7 g 130/88 mm[Hg] Not Available [facility] 3 15:15:47 Date Recorded Body height Body mass index (BMI) Body weight Body temperature Heart rate Oxygen saturation Oxygen saturation in Arterial blood by Pulse oximetry Systolic And Diastolic Provider Name and Address Organization Details Last Updated DateTime 3 180.34 cm 26.6 kg/m2 33045.1 4 g 97.8 [degF] 80 /min 98 % 98 % 130/80 mm[Hg] Robert Greer Mejia [employer] 3 12:25:31 Date Recorded Body height Body mass index (BMI) Body weight Body temperature Pain severity - 0-10 verbal numeric rating [Score] - Reported Heart rate Oxygen saturation Oxygen saturation in Arterial blood by Pulse oximetry Systolic And Diastolic Provider Name and Address Organization Details Last Updated DateTime 5 180.34 cm 26.5 kg/m2 37687.5 5 g 98.3 [degF] 0 77 /min 98 % 98 % 130/94 mm[Hg] MARYSE Fowler - [facility] [employer] [facility] 5 15:17:47 Date Recorded Body mass index (BMI) Body height Heart rate Body temperature Body weight Systolic And Diastolic Provider Name and Address Organization Details Last Updated DateTime 2 26.6 kg/m2 180.34 cm 78 /min 97.7 [degF] 77033.1 4 g 132/82 mm[Hg] Not Available [facility] 3 15:15:47 Social History Question Answer Notes LastModified by Organizat ion Details LastModified Time Tobacco Smoking Status Never Smoker Not Available [facility] 01/17/2023 15:14:27 Do You Have An Advance Directive? No [id number] Information not available 01/17/2023 What Is Your Level Of Caffeine Consumption? Occasional MIGRATION.154989 1194 Information not available 01/17/2023 How Much Tobacco Do You Chew? None MIGRATION.693184 1812 Information not available 01/17/2023 In The 14 Days Before Symptom Onset, Have You Had Close Contact With A Laboratory-confir med COVID-19 While That Case Was Ill? No MIGRATION.[id number] 0912 Information not available 01/17/2023 In The 14 Days Before Symptom Onset, Have You Had Close Contact With A Person Who Is Under Investigation For COVID-19 While That Person Was Ill? No MIGRATION.[id number] 3100 Information not available 01/17/2023 What Type Of Diet Are You Following? REGULAR MIGRATION.885819 9438 Information not available 01/17/2023 Which Illicit Or Recreational Drugs Have You Used? None MIGRATION.657057 4293 Information not available 01/17/2023 What Is The Highest Grade Or Level Of School You Have Completed Or The Highest Degree You Have Received? GU64797-2 MIGRATION.567065 7945 Information not available 01/17/2023 Have There Been Any Changes To Your Family Or Social Situation? No MIGRATION.446910 3417 Information not available 01/17/2023 What Is The Fluoride Status Of Your Home? Unknown MIGRATION.960269 8067 Information not available 01/17/2023 Are There Any Guns Present In Your Home? Yes MIGRATION.275264 4498 Information not available 01/17/2023 Do You Use Insect Repellent Routinely? No MIGRATION.006131 2910 Information not available 01/17/2023 [facility] MIGRATION.715055 3560 Information not available 01/17/2023 Do You Have A Medical Power Of Senior Pastor? No MIGRATION.621849 9871 Information not available 01/17/2023 What Was The Date Of Your Most Recent Tobacco Screening? 07/29/2025 [email or web address] Information not available 07/29/2025 Do You Have Any Pets? No MIGRATION.844666 4983 Information not available 01/17/2023 What Is Your Relationship Status? MIGRATION.620538 0704 Information not available 01/17/2023 Do You Have Smoke And Carbon Monoxide Detectors In Your Home? Yes MIGRATION.267245 0411 Information not available 01/17/2023 Are You Passively Exposed To Smoke? No MIGRATION.480991 0789 Information not available 01/17/2023 Are There Any Smokers In Your House? No MIGRATION.276734 8449 Information not available 01/17/2023 How Much Tobacco Do You Smoke? No MIGRATION.448548 2592 Information not available 01/17/2023 Do You Use Sunscreen Routinely? No MIGRATION.159573 8500 Information not available 01/17/2023 Has Tobacco Cessation Counseling Been Provided? No N/a MIGRATION.267714 1724 Information not available 01/17/2023 How Many Years Have You Smoked Tobacco? 0 MIGRATION.486974 4747 Information not available 01/17/2023 Have You Recently Traveled Abroad? No MIGRATION.243826 5581 Information not available 01/17/2023 Do You Have Any Dietary Restrictions? No MIGRATION.066102 8688 Information not available 01/17/2023 Sex: Male Functional Status Question Answer Note LastModified by Organizat ion Details LastModified Time Do you use any illicit or recreational drugs? No MIGRATION.747256 5372 Information not available 01/17/2023 Do you or have you ever used any other forms of tobacco or nicotine? No MIGRATION.853891 2040 Information not available 01/17/2023 What is your level of alcohol consumption? 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 None MIGRATION.244727 5540 Information not available 01/17/2023 Mental Status Question Answer Note LastModified by Organizat ion Details LastModified Time Do you feel stressed (tense, restless, nervous, or anxious, or unable to sleep at night)? [id number] MIGRATION.[id number] Information not available 01/17/2023 Family History Relationship Description Onset Age of this Age Resolved Age Notes LastModified by Organization Details LastModified Time Maternal Grandmother Alzheimer's disease [id number] Not available 01/17/2023 15:15:33 Maternal Grandmother Transient cerebral ischemia [id number] Not available 01/17/2023 15:15:33 Medical History Condition Response NERVE DISEASE N BLINDNESS N RHEUMATIC FEVER N KIDNEY STONES N BLADDER PROBLEMS N MRSA N OTHER # 1 Y POLIO N LUNG DISEASE/DISORDER N COPD N RADIATION / CHEMOTHERAPY N Other # 2 N BLOOD DISEASES N SURGERY N EAR OR HEARING PROBLEMS N MUMPS N DEPRESSION (INCLUDING POST ) N BOWEL PROBLEMS N STROKE/TIA N ULCERS N BENIGN PROSTATIC HYPERPLASIA N MEASLES N MYOCARDIAL INFARCTION N OBESITY N GERD/NAUSEA N ANEURYSM N URINARY/BLADDER/KIDNEY PROBLEMS N CORONARY ARTERY DISEASE (CAD) N ADDICTION CONCERNS N Impotence N ENDOMETRIOSIS N USE OF BLOOD THINNERS N SKIN PROBLEMS N GASTROINTESTINAL DISORDER N PERIPHERAL VASCULAR DISEASE N MUSCLE,JOINT OR BONE PROBLEMS N GASTROINTESTINAL BLEEDING N BLOOD CLOTS N ASTHMA N CATARACTS N ERECTILE DYSFUNCTION N VARICOSITIES N GI PROBLEMS N Low Testosterone N INFERTILITY N AIDS/HIV N CHEMOTHERAPY / RADIATION N LIVER DISEASE N MALE HYPOGONADISM N HYPERTENSION Y Deficiency N ANXIETY DISORDER N BLOOD TRANSFUSION N ANEMIA/BLOOD DISORDER N CHRONIC EAR INFECTIONS N BRONCHITIS N TUBERCULOSIS N GLAUCOMA N FOOT PROBLEM N DIVERTICULITIS N SLEEP APNEA N CHICKENPOX N INFECTIOUS DISEASE N PROSTATE N HEART ARRHYTHMIA N INSOMNIA N HIGH CHOLESTEROL / HYPERLIPIDEMIA Y HYPERTHYROIDISM N EYE PROBLEMS N NEUROLOGICAL PROBLEMS N EDEMA N CHRONIC PAIN SYNDROME N HYPOTHYROIDISM N CONSTIPATION N CAROTID BLOCKAGE N BACK / NECK PROBLEMS N ATHEROSCLEROSIS N BREAST PROBLEMS N DIALYSIS N ECZEMA N OSTEOPOROSIS N ARTHRITIS N APPENDICITIS N DIABETES, TYPE N BAD TEETH N ENT N HEARTBURN / REFLUX N AUTISM SPECTRUM DISORDER (ASD) N HEPATITIS / LIVER DISEASE N GOUT N SLEEP DISORDER N ALZHEIMER'S DISEASE N Brain Problems N HERPES N DEMENTIA N SEIZURES/EPILEPSY N HEADACHES/MIGRAINES N VASCULAR DISEASE N PACEMAKER N Blood Disorder N DIZZINESS N KIDNEY DISEASE N HEART DISEASE/HEART PROBLEMS N MULTIPLE SCLEROSIS N CARDIAC ARRHYTHMIA N CANCER: SPECIFY N Gall Stones N ATRIAL FIBRILLATION N PULMONARY EMBOLISM N AUTOIMMUNE DISEASE N Immunizations Vaccine Type Date Status Note Provider Nam e and Address Organization Details Recorded Time COVID-19, mRNA, LNP-S, PF, 100 mcg/0.5mL dose or 50 mcg/0.25mL dose 03/03/2021 completed Not Available [facility] 15:00:17 COVID-19, mRNA, LNP-S, PF, 100 mcg/0.5mL dose or 50 mcg/0.25mL dose 03/31/2021 completed Not Available [facility] 15:00:17 Tdap 09/07/2022 completed Not Available Pending sale to [facility] 01/07/2024 23:37:08 Past Encounters Encounter ID Performer Location Encounter Start Date Encounter Closed Date Diagnosis/Indication Diagnosis SNOMED-CT Code Diagnosis ICD10 Code Diagnosis IMO Codes Diagnosis Note [id number] Jose Antonio calle MD [facility] Internal Med [facility] [address] [address] 06/09/2021 00:00:00 06/09/2021 11:31:55 [id number] Jose Antonio calle MD [facility] Internal Med [facility] [address] [address] 09/07/2022 00:00:00 09/07/2022 12:20:35 [id number] Ruddy gross MD [facility] General Surgery [address] [facility], [address] [address] 07/26/2023 12:09:22 07/26/2023 14:46:15 Polyp of colon 27909553 K63.5 [id number] Jose Antonio calle MD [facility] [place] [facility] [address] [place] [address] 02/20/2024 09:59:33 02/20/2024 10:41:24 Screening - NAD 492713022 Z13.9 C-scope: 12/18/19: Dr Laboy, next 3 years, referred 09/07/2022 Now is to see Dr Zonia Juárez GI for reviewing the polyp noted, he also has seen Dr Benavidze 07/26/2023 and was told he may need a colectomy Get yearly flu shotGet tdap if not doneUTD on COVID 19 vaccineCan do Shingrix vaccine RTC in 4 monthsDo labsER if worseHe did verbalize his understand ing of the above Essential hypertension 88124977 I10 On lisinopril 20mg dailyGet labs Hyperlipidemia 63935653 E78.5 On rosuvastat in 20mg daily, not taking thisGet labs Screening for malignant neoplasm of prostate 976515552 Z12.5 Adult heal th examination 284885148 Z00.00 Depression screening 171 103026 Z13.31 [id number] Jose Antonio calle MD [facility] [address] [place] [address] 07/29/2025 14:58:10 07/29/2025 15:49:06 Screening - NAD 577423908 Z13.9 C-scope: 11/05/19: Dr Laboy, next 3 years, referred 09/07/2022 Now is to see Dr Zonia Juárez [facility] for reviewing the polyp noted, he also has seen Dr Benavidez 07/26/2023 and was told he may need a colectomyD oes well today 07/29/2025 and is to see GI in 2 years Get yearly flu shotGet tdap if not doneUTD on COVID 19 vaccineCan do Shingrix vaccine RTC in 4 monthsDo labsER if worseHe did verbalize his understand ing of the above Essential hypertension 00513489 I10 On lisinopril 20mg dailyGet labs Hyperlipidemia 55753359 E78.5 On rosuvastat in 20mg daily, not taking thisGet labs Screening for malignant neoplasm of prostate 752751821 Z12.5 Adult heal th examination 093235909 Z00.00 Renewal of prescription 772461157 Z76.0 Screening for malignant neoplasm of colon 751825581 Z12.11 104268 Health Concerns Section Related Observation LastModified by Organization Detai ls LastModified Time None Recorded Concern Status LastModified by Organization Details LastModified Time None Recorded Advance Directives Directive N: Payers Insurance Date Sequence Insurance Name Policy Number Policy Gaitan Covered Member ID Gaitan Member ID Guarantor Name 07/27/2025 1 [facility] ([facility] [id number] Earnest Sánchez Kathy [id number] Earnest Sánchez [place] Notes Date Note Type Note Provider Name and Address Organization Details Recorded Time 07/26/2023 text/html patient referred by primary care physician for incompletely resected right colon polyp by GI. Patient had a colonoscopy recently where a sessile polyp was incompletely excised because of its location and size. Patient had colonoscopy 5 years ago with excision of several polyps which were benign as well. Denies any bowel symptoms. No family history of colon cancer Ruddy Martines MD [address], [address], [place], [address], [employer] [facility] [employer] 07/26/2023 13:42:49 02/20/2024 text/html OV 08/19/19: Past PCP: Dr Samuels Here for establish care Past Hx:HTNHLD Reviewed social family and surgical history Is doing well today, needs to labsHis extensive ROS today was negativeHe states that he is very active, he works in the mill in [place] OV 06/03/2020:Here for his routine apt He feels wellHas a c/o discolored semen, no testicular painNo trauma to the scrotum or testesNo fevers or chillsNo exposure to STIsNo abd pain OV 06/09/2021:Here for his routine aptHe feels well He did do the labs on 06/07/2021Wants to get a referral to surgery for a cyst on the R side of the face just behind the ear, feels that it is getting bigger OV 09/07/2022:Here for his f/u apt, no recent labs noted, he feels well today OV 02/20/2024: Here for his f/u apt, he is doing well, no new labs noted, he has missed his f/u apts in the past Jose Antonio Pope MD [address], [address], [place], [address], [employer] [facility] 02/25/2024 09:25:52 07/29/2025 text/html OV 08/19/19:Past PCP: Dr Samuels Here for establish carePast Hx:HTNHLDReviewed social family and surgical historyIs doing well today, needs to labsHis extensive ROS today was negativeHe states that he is very active, he works in the [employer] in [employer] OV 06/03/2020:Here for his routine aptHe feels wellHas a c/o discolored semen, no testicular painNo trauma to the scrotum or testesNo fevers or chillsNo exposure to STIsNo abd pain OV 06/09/2021:Here for his routine aptHe feels well He did do the labs on 06/07/2021Wants to get a referral to surgery for a cyst on the R side of the face just behind the ear, feels that it is getting bigger OV 09/07/2022:Here for his f/u apt, no recent labs noted, he feels well today OV 02/20/2024: Here for his f/u apt, he is doing well, no new labs noted, he has missed his f/u apts in the past OV 07/29/2025: Here for his f/u apt, he is doing well today Not Available Not Available Not Available
--- OUTSIDE RECORDS SUMMARY | 2025-09-14 01:01 | XMS_ITS | Clinical Summary ---
Author Organization [facility] Address [address] [place] [address] Care Team Providers Care Seismograph Operator Helper Name Role Phone Nanci Pope MD Primary Care Provide r Allergies No known active allergies Medications cyclobenzaprine (FLEXERIL) 10 mg tablet Take 1 tablet (10 mg total) by mouth 3 (three) times a day as needed for muscle spasms 12 tablet 06/03/2021 Active Social History Tobacco Use Types Packs/Day Years Used Date Smoking Tobacco: Never Assessed Personal Safety Answer Date Recorded Getting School Help Needed Not on file 02/01 Sex and Gender Information Value Date Recorded Sex Assigned at Not on file Legal Sex Male 7:50 PM [employer] Gender Identity Not on file Sexual Orientation Not on file Last Filed Vital Signs Vital Sign Reading Time Taken Comments Blood Pressure 141/92 06/03/2021 12:15 AM CDT Pulse 57 06/03/2021 12:15 AM CDT Temperature 36.1 C (97 F) 06/02/2021 10:33 PM CDT Respiratory Rate 16 06/03/2021 12:15 AM CDT Oxygen Saturation 99% 06/03/2021 12:15 AM CDT Inhaled Oxygen Concentration - - Weight 88.1 kg (194 lb 3.6 oz) 06/02/2021 10:33 PM CDT Height 182.9 cm (6') 06/02/2021 10:33 PM CDT Body Mass Index 26.34 06/02/2021 10:33 PM CDT Plan of Treatment Not on file [place] Care Teams Seismograph Operator Helper Relationship Specialty Start Date End Date Nanci Pope MD [address] [address] PCP - General Internal Medicine 06/02/21
[2025-09-14 13:29] VITALS: BP 113/81; PULSE 87; RESP 18; TEMP 36.3; O2SAT 100; BMI 26.4
[2025-09-14] MEDS: LACTATED RINGERS 1,000 ML 150 ML IV CONT (13:45)
--- NOTE | 2025-09-14 14:20 | WPDANESEPPF ---
Anes - Initial Pre Proc Eval Procedure: Operation Date: 09/14/25 14:30 Proposed Procedures p Screening Colonoscopy - Humberto Valentino MD Date/Time: 09/14/25 14:20 Surgeon: Humberto Valentino MD Pre Op Diagnosis: Personal history of colon polyps, unspecified Patient Data Age: 59 Gender: M Height: 1.8 m Weight: 85.8 kg Last Vital Signs Temp 36.3 C L 09/14/25 13:29 Pulse 87 09/14/25 13:29 Resp 18 09/14/25 13:29 BP 113/81 09/14/25 13:29 Pulse Ox 100 09/14/25 13:29 O2 Del Method Room Air 09/14/25 13:29 Allergies Allergy/AdvReac Type Severity Reaction Status Date / Time hydrochlorothiazide Allergy Severe TROUBLE Verified 09/14/25 13:35 BREATHING/BLACKING OUT Home Medications ?Medication ?Instructions ?Recorded ?Confirmed ?Type lisinopril 20 mg tablet 20 mg PO DAILY 09/07/25 09/14/25 History Patient hx anesthesia problems: none Family hx anesthesia problems: none Results Review: All pre-operative results and documents have been reviewed as part of the pre-operative evaluation. [facility] Social History Social History Smoking packs per day: 0.25 Smoking cigarettes per day: 5.0 Years smoked: 15 Smoking pack-years: 3.75 Smoking status: Current every day smoker Alcohol intake: current Alcohol use details: rarely Substance use: never Substance use type: does not use Living arrangements: with family Spiritual care concerns: No Anes - Eval Final PreProcedure Day of Procedure 09/14/25 14:20 Patient weight: overweight Heart: regular rate and rhythm Lungs: decreased breath sounds Airway: Mallampati scale class II Neurological: alert and oriented Last oral intake: >/= 8 hours ASA classification: III Emergent: no Anesthetic plan: proceed Anesthesia type and monitoring: general GIVS and standard monitoring Results Review: All pre-operative results and documents have been reviewed as part of the pre-operative evaluation. Informed Consent: The patient's anesthetic plan and its attendant risks and benefits were discussed with the patient/family/POA. Questions were solicited and answers provided to the satisfaction of the patient/family/POA.
--- NOTE | 2025-09-14 14:41 | PM.HPGS ---
History of Present Illness History of Present Illness Consent: Risks, benefits, and alternatives have been discussed and questions answered. Patient agrees to proceed with procedure. Chief complaint: Personal history of colon polyps, unspecified Narrative: Earnest Chavez is a 59 year old male with colon polyp 1.5 year ago Review of Systems Review of Systems: All systems reviewed & are unremarkable except as noted in HPI and below PMFSH Past Medical History Medical History (Updated 09/14/25 @ 14:42 by Humberto Valentino MD) Adenomatous colon polyp Social History Social History Smoking packs per day: 0.25 Smoking cigarettes per day: 5.0 Years smoked: 15 Smoking pack-years: 3.75 Smoking status: Current every day smoker Alcohol intake: current Alcohol use details: rarely Substance use: never Substance use type: does not use Living arrangements: with family Spiritual care concerns: No Meds Home Medications and Allergies Home Medications ?Medication ?Instructions ?Recorded ?Confirmed ?Type lisinopril 20 mg tablet 20 mg PO DAILY 09/07/25 09/14/25 History Allergies Allergy/AdvReac Type Severity Reaction Status Date / Time hydrochlorothiazide Allergy Severe TROUBLE Verified 09/14/25 13:35 BREATHING/BLACKING OUT Vital Signs Vital Signs - 24 hr 09/14/25 13:29 Temperature 97.3 F L Pulse Rate 87 Respiratory Rate 18 Blood Pressure 113/81 Pulse Oximetry 100 Oxygen Delivery Room Air Exam Const: General: comfortable and no acute distress HENMT: Face/Nose/Sinus: Normal nares present Eyes: General: appearance normal, both eyes and all related structures Neck: Neck: no JVD Resp: Auscultation: clear to auscultation bilaterally Cardio: Rate: regular rate Rhythm: regular rhythm GI: Inspection: non-distended GI Palp: Yes Soft to palpation Skin: General skin exam: normal color Neuro: General: gait normal Speech: normal speech Extrem: General: normal to inspection Psych: Mental Status: mental status grossly normal Assessment and Plan Assessment and plan (1) Adenomatous colon polyp: Code(s): D12.6 - Benign neoplasm of colon, unspecified Status: Acute Assessment and Plan: colonoscopy
[2025-09-14 15:01] VITALS: BP 98/78; PULSE 87; RESP 22; O2SAT 97
--- NOTE | 2025-09-14 15:02 | S_PTH ---
PATIENT: Earnest Chavez LOC: [facility] Mtz#:[id number] AGE/SX: 59/M ROOM: RE09/14/[address]: Humberto Valentino MD : 1965 BED: DIS: 09/14/2025 SPEC #: [id number] RECD: 09/15/25 07:30 STATUS: RICHAR REDavid #: [id number] GLORIA: 09/14/25 15:[address]: Humberto Valentino DEPT: [facility] Surgical RECD BY: Joby Engel ENTERED: 09/15/25 07:31 SP TYPE: Surgical OTHR DR: Jose Antonio PopeMD Tissues: A - Colon Polypectomy B - Colon Polypectomy C - Colon Polypectomy Procedures: Hematoxylin and Eosin Stain Gross and Microscopic Level 4
[2025-09-14 15:11] VITALS: BP 84/61; PULSE 76; RESP 15; O2SAT 96
[2025-09-14 15:21] VITALS: BP 107/67; PULSE 67; RESP 20; O2SAT 99
== END 2025-09-14 15:32 | disposition home or self-care (01) ==
PROVIDERS: PCP Internal Medicine; Referring Provider Internal Medicine; Visit Provider Internal Medicine Gastroenterology
PROC: 0DJD8ZZ Inspection of Lower Intestinal Tract, Via Natural or Artificial Opening Endoscopic (ICD-10-PCS; CPT 45378; principal; 2025-09-14 14:30)
DX: Z09 Encounter for follow-up examination after completed treatment for conditions other than malignant neoplasm (principal); D12.0 Benign neoplasm of cecum; K63.5 Polyp of colon; K64.8 Other hemorrhoids; F17.210 Nicotine dependence, cigarettes, uncomplicated
CPT/HCPCS: 45385; 88305; J2003; J2704; J7120